=== PATIENT | female | born 1985 | race Caucasian/White ===

== ENCOUNTER → 2024-01-18 12:28 | Outpatient (REF) | payer OTHER, SELFPAY | LOC: WOUND 12:28 | PROVIDERS: ATTENDING PHYSICIAN Surgery; FAMILY PHYSICIAN Family Medicine | DX: S31.109A Unspecified open wound of abdominal wall, unspecified quadrant without penetration into peritoneal cavity, initial encounter (principal); S30.1XXA Contusion of abdominal wall, initial encounter; I10 Essential (primary) hypertension; E66.01 Morbid (severe) obesity due to excess calories; X58.XXXA Exposure to other specified factors, initial encounter | CPT/HCPCS: 99203 ==

== ENCOUNTER → 2024-01-19 12:59 | Outpatient (REF) | payer OTHER, SELFPAY | LOC: HWRAD 12:59 | PROVIDERS: ATTENDING PHYSICIAN Plastic Surgery | DX: L02.211 Cutaneous abscess of abdominal wall (principal) | CPT/HCPCS: 74177; Q9967 ==

== ENCOUNTER → 2024-05-23 11:47 | Outpatient (REF) | payer OTHER, SELFPAY | LOC: RCS 11:47 | PROVIDERS: FAMILY PHYSICIAN Family Medicine | DX: A31.8 Other mycobacterial infections (principal) | CPT/HCPCS: 93005 ==

== ENCOUNTER → 2024-09-30 13:46 | Outpatient (REF) | payer OTHER, SELFPAY | LOC: RCS 13:46 | PROVIDERS: ATTENDING PHYSICIAN Internal Medicine Infectious Disease; FAMILY PHYSICIAN Family Medicine | DX: A31.8 Other mycobacterial infections (principal); T14.8XXA Other injury of unspecified body region, initial encounter; L08.9 Local infection of the skin and subcutaneous tissue, unspecified | CPT/HCPCS: 93005 ==